=== PATIENT | female | born 1975 | race Caucasian/White ===

== ENCOUNTER 2016-03-01 07:42 | Emergency (ER) | payer OTHER ==
[~2016-03-01] VITALS: Wt 133.5 kg
[~2016-03-01 07:42] MED LIST: BENA20TA48 PO; CIPR500T4 PO; FLUC150T17 PO; HC2.5O30 TOP; HYDR-902 PO; IBUP800T25 PO; MECL-77 PO; ONDA4TAB35 PO; PHEN-538 PO; PHEN95TA29 PO
[2016-03-01] MEDS ORDERED: AMOX1TAB10 PO (08:52)
[2016-03-01] MEDS ORDERED: GUAI120S26 PO (08:54)
[2016-03-01] MEDS ORDERED: IBUP-1542 PO (08:54)
--- NOTE | 2016-03-01 11:29 | ERD ---
ER Documentation Chief Complaint Date/Time DATE: 03/01/16 TIME: 11:26 Chief Complaint COUGH X1 WEEK, NO FEVER, ALSO THROAT PAIN HPI 40-year-old female with a past medical history of hypertension presents to the ED complaining of a fever, dry cough and sore throat that started last week. Also reports that her sinuses are painful. States it is worse when leaning forward. Reports that he has been taking TheraFlu without relief. Denies any sick contacts. Denies any wheezing, shortness of breath, chest pain, abdominal pain, nausea, vomiting, dyspnea on exertion, pleuritic chest pain. ROS All systems reviewed and are negative except as per history of present illness. Medications Home Meds Active Scripts Ibuprofen* (Motrin*) 600 Mg Tab, 600 MG PO Q6, #30 TAB Prov:CINTIA PEREIRA PA-C 03/01/16 Zssdcrlftre-G-Cicotdhaie Hb* (Guaifenesin* DM Syrup) 120 Ml Syrup, 10 ML PO Q4H Y for COUGH, #120 ML Prov:CINTIA PEREIRA PA-C 03/01/16 Amoxicillin/Potassium Clav (Amox-Clav 875-125 mg Tablet) 875-125 mg Tab, 1 TAB PO BID for 7 Days, #14 TAB Prov:CINTIA PEREIRA PA-C 03/01/16 Hydrocodone/Acetaminophen ([place] 10-325 Tablet) 1 Each Tablet, 1 TAB PO Q6H Y for PAIN, #20 TAB Prov:EDINOSBAILEYSTOLOS ARuss DO 11/10/15 Ibuprofen* (Motrin*) 800 Mg Tab, 800 MG PO Q6H Y for PAIN AND OR ELEVATED TEMP, #30 TAB Prov:LEMAYKELOSAPOSTOLOS ARuss DO 11/10/15 Fluconazole* (Diflucan*) 150 Mg Tablet, 150 MG PO ONCE, #1 TAB Prov:YESENIA NEVILLE MD 05/04/15 Phenazopyridine Hcl* (Pyridium*) 200 Mg Tab, 200 MG PO TID Y for DYSURIA, #6 TAB Prov:YESENIA NEVILLE MD 05/04/15 Phenazopyridine Hcl* (AZO*) 95 Mg Tablet, 95 MG PO TID, #10 TAB Prov:ENRIQUE MARQUEZ PA-C 04/24/15 Ciprofloxacin Hcl* (Ciprofloxacin Hcl*) 500 Mg Tablet, 500 MG PO BID for 7 Days , TAB Prov:ENRIQUE MARQUEZ PA-C 04/24/15 Ciprofloxacin Hcl* (Ciprofloxacin Hcl*) 500 Mg Tablet, 500 MG PO BID for 7 Days , TAB Prov:GABRIELLA CHAVARRIA MD 10/26/14 Hydrocortisone* Topical (Hydrocortisone* Topical) 2.5%-28.3 Gm Oint, 1 APPLIC TOP BID, #30 TUB Prov:LINDSAY MARIE PA-C 08/22/14 Benazepril Hcl* (Benazepril Hcl*) 20 Mg Tablet, 20 MG PO DAILY, #30 TAB 3 Refills Prov:LINDSAY MARIE PA-C 08/22/14 Meclizine Hcl* (Meclizine Hcl*) 25 Mg Tablet, 25 MG PO Q8H Y for dizziness, #30 TAB Prov:LINDSAY MARIE PA-C 08/22/14 Ondansetron Hcl* (Zofran* ODT) 4 mg -ODT Tab.disper, 4 MG PO Q6 Y for NAUSEA AND /OR VOMITING, #10 TAB Prov:LINDSAY MARIE PA-C 08/22/14 Reported Medications Benazepril Hcl* (Benazepril Hcl*) 20 Mg Tablet, 20 MG PO DAILY, TAB 08/22/14 Allergies Allergies: Coded Allergies: No Known Allergy (Unverified , 10/26/14) PMhx/Soc History of Surgery: No Anesthesia Reaction: No Hx Neurological Disorder: No Hx Respiratory Disorders: No Hx Cardiac Disorders: No Hx Psychiatric Problems: No Hx Miscellaneous Medical Probl: No Hx Alcohol Use: No Hx Substance Use: No Hx Tobacco Use: No Smoking Status: Never smoker Physical Exam Vitals Vital Signs Date Time Temp Pulse Resp B/P Pulse Ox O2 Delivery O2 Flow Rate FiO2 03/01/16 07:53 97.6 66 18 171/96 98 Physical Exam Const: Xve-ikv-eakxztbun, well-nourished. In no acute distress. Head: Atraumatic, normocephalic. Tenderness to palpation of the bilateral maxillary and frontal sinuses. Eyes: Normal Conjunctiva without injection. No purulent discharge. PERRL. EOMI ENT: Normal external ear. Ear canal without erythema. Tympanic membrane pearly meza without effusion or bulging. Nasal canal clear with normal turbinates. Moist oropharynx without tonsillar exudates. Non-erythematous pharynx. Uvula midline. No drooling. No trismus. Neck: Full range of motion. No meningismus. No cervical lymphadenopathy. Resp: Clear to auscultation bilaterally. No wheezing, rhonchi, rales, or crackles. No accessory muscle use. No retractions. Cardio: Regular rate and rhythm. No murmurs, rubs or gallops. Abd: Soft, non tender, non distended. Normal bowel sounds. No palpable masses. No rebound tenderness. No guarding. Skin: No petechiae or rashes Back: No midline tenderness. No CVA tenderness. Ext: No cyanosis, or edema. Neur: Awake and alert. Psych: Normal Mood and Affect Procedures/MDM This is a 40-year-old female with a past medical history of hypertension presents to the ED complaining of cough since 1 week ago. Patient is afebrile nontoxic appearing. Patient's blood pressure was noted to be 171/96. Patient' s blood pressure was elevated (>120/80) but appears stable without evidence of hypertension emergency or urgency. The patient was counseled about the risks of hypertension and urged to pursue outpatient monitoring and therapy within a week with their primary care physician. Low suspicion for end organ damage. Since patient has been having a cough for more than 1 week, a chest x-ray was ordered to further evaluate patient. Patient's physical exam is consistent with sinusitis. Patient is appropriate for outpatient antibiotics. Patient's physical exam include lungs which were clear to auscultation and a normal pulse oximetry. Bilateral ears pearly may. No tenderness to palpation of tragus or mastoid. Low suspicion for mastoiditis, otitis externa, otitis media. Patient is speaking in full sentences. There is a low suspicion for pneumonia, epiglottitis, croup, sinusitis, peritonsillar abscess, retropharyngeal abscess, meningitis, sepsis, acute abdomen or other emergent conditions. Discharge medications: Augmentin, Ibuprofen, Guaifenesin DM Follow up with primary care physician in 1-2 days. Instructed patient to return to the ED sooner for any worsening symptoms. Patient's questions were answered. Patient understood and agreed with discharge plan. Patient discharged stable. Departure Diagnosis: Primary Impression: Sinusitis Sinusitis location: unspecified location Chronicity: acute Recurrence: not specified as recurrent Qualified Code: J01.90 - Acute sinusitis, recurrence not specified, unspecified location Additional Impression: URI (upper respiratory infection) URI type: unspecified URI Qualified Code: J06.9 - Upper respiratory tract infection, unspecified type Condition: Stable Patient Instructions: Sinusitis, Abx Tx, Uri, Viral, No Abx (Adult) Referrals: COMMUNITY CLINICS YOU HAVE RECEIVED A MEDICAL SCREENING EXAM AND THE RESULTS INDICATE THAT YOU DO NOT HAVE A CONDITION THAT REQUIRES URGENT TREATMENT IN THE EMERGENCY DEPARTMENT. FURTHER EVALUATION AND TREATMENT OF YOUR CONDITION CAN WAIT UNTIL YOU ARE SEEN IN YOUR DOCTORS OFFICE WITHIN THE NEXT 1-2 DAYS. IT IS YOUR RESPONSIBILITY TO MAKE AN APPOINTMENT FOR FOLOW-UP CARE. IF YOU HAVE A PRIMARY DOCTOR --you should call your primary doctor and schedule an appointment IF YOU DO NOT HAVE A PRIMARY DOCTOR YOU CAN CALL OUR PHYSICIAN REFERRAL HOTLINE AT IF YOU CAN NOT AFFORD TO SEE A PHYSICIAN YOU CAN CHOSE FROM THE FOLLOWING [facility] [address] [facility]. [facility] [address] [facility] [address] [facility] [address] [facility] [address] [facility]. [facility]. [address] [facility]. [facility] YOU HAVE RECEIVED A MEDICAL SCREENING EXAM AND THE RESULTS INDICATE THAT YOU DO NOT HAVE A CONDITION THAT REQUIRES URGENT TREATMENT IN THE EMERGENCY DEPARTMENT. FURTHER EVALUATION AND TREATMENT OF YOUR CONDITION CAN WAIT UNTIL YOU ARE SEEN IN YOUR DOCTORS OFFICE WITHIN THE NEXT 1-2 DAYS. IT IS YOUR RESPONSIBILITY TO MAKE AN APPOINTMENT FOR FOLOW-UP CARE. IF YOU HAVE A PRIMARY DOCTOR --you should call your primary doctor and schedule and appointment IF YOU DO NOT HAVE A PRIMARY DOCTOR YOU CAN CALL OUR PHYSICIAN REFERRAL HOTLINE AT . IF YOU CAN NOT AFFORD TO SEE A PHYSICIAN YOU CAN CHOSE FROM THE FOLLOWING [facility] INSTITUTIONS: [facility] [address] [place] [address] [facility] [address] [place] [address] [facility] [address] [place] [address] [facility] URGENT CARE/SPECIALTIES Additional Instructions: FOLLOW UP WITH YOUR PRIMARY CARE PHYSICIAN TOMORROW. Return to this facility if you are not improving as expected. CINTIA PEREIRA PA-C Mar 01, 2016 11:29 CINTIA PEREIRA PA-C Mar 01, 2016 11:29
== END 2016-03-01 09:01 | disposition home or self-care (01) ==
LOC: FTE 07:42
DX: J01.90 Acute sinusitis, unspecified (principal); J06.9 Acute upper respiratory infection, unspecified; I10 Essential (primary) hypertension
CPT/HCPCS: 99283

== ENCOUNTER 2018-07-04 21:45 | Inpatient (IN) | payer OTHER ==
[~2018-07-04] VITALS: Ht 165.1 cm; Wt 142.4 kg
[~2018-07-04 21:45] MED LIST changes: +AMOX1TAB10 PO; +BENA20TA4 PO; -BENA20TA48 PO; +FLUC150T PO; -FLUC150T17 PO; +GUAI120S25 PO; +HYDR-3980 PO; -HYDR-902 PO; +IBUP-1542 PO; -IBUP800T25 PO; +IBUP800T48 PO
[2018-07-05] VITALS (11 sets, daily range): BP systolic 118–138; BP diastolic 60–71; PULSE 62–78; RESP 18–20; Ht 165.1 cm; Wt 142.4 kg
[2018-07-05] MEDS ORDERED: MTF1000T PO (00:39)
[2018-07-05] MEDS ORDERED: ATOR40TA68 PO (00:39)
[2018-07-05] MEDS ORDERED: ASPI-903 PO (00:39)
[2018-07-05] MEDS ORDERED: CHOL100062 PO (00:39)
[2018-07-05] MEDS ORDERED: BENA40TA56 PO (00:39)
[2018-07-05] MEDS ORDERED: GLIP5TAB13 PO (00:39)
[2018-07-05] MEDS ORDERED: ACETAMINOPHEN 325 MG TAB PO PRN (02:00)
[2018-07-05] MEDS ORDERED: ONDANSETRON 4 MG INJ IV PRN (02:00)
[2018-07-05] MEDS ORDERED: DEXTROSE 50% 50 ML SYRINGE IV PRN ×2 (03:00)
[2018-07-05] MEDS ORDERED: GLUCOSE GEL 15 GRAM TUBE BUCCAL PRN (03:00)
[2018-07-05] MEDS ORDERED: GLUCAGON 1 MG INJ IM PRN (03:00)
[2018-07-05] MEDS ORDERED: GLUCOSE GEL 15 GRAM TUBE PO PRN ×2 (03:00)
[2018-07-05] MEDS: ACCU-CHEK XX SCH (03:30)
[2018-07-05] MEDS: PANTOPRAZOLE (EC) 40 MG TAB PO SCH (05:52)
[2018-07-05] MEDS: CHOLECALCIFEROL 1,000 UNIT TAB PO SCH (08:14)
[2018-07-05] MEDS: ASPIRIN 81 MG TAB PO SCH (08:14)
[2018-07-05] MEDS: BENAZEPRIL 40 MG TAB PO SCH (08:14)
[2018-07-05] MEDS: INSULIN ASPART [NOVOLOG] 3 ML PEN SC SCH ×4 (08:41→21:00)
--- NOTE | 2018-07-05 13:57 | QN ---
Documentation Comment seen and examined SON MORRISON MD July 05, 2018 13:57
[2018-07-05] MEDS ORDERED: NITROGLYCERIN (SL) 0.4 MG TAB SL PRN (14:30)
--- NOTE | 2018-07-05 16:12 | HP ---
DATE OF ADMISSION: 07/04/2018 REASON FOR ADMISSION: Transferred from [facility] secondary to chest pain. HISTORY OF PRESENTING ILLNESS: This is a 42-year-old morbidly obese female with a past medical histo ry of diabetes, hypertension, hyperlipidemia, history of cholecystectomy, who was sent in from [facility] secondary to chest pain due to insurance reasons. According to the patient, she suffer s from panic attacks and anxiety attacks sometimes; however yesterday when she was sitting in the off ice all of a sudden, she was having some blurry vision. She started feeling dizzy, nauseous and then she started having left chest pain which was pressure like in her chest. This pain lasted for 1 christianne r. She told her boss that she is leaving and came to the hospital at [facility] for further evaluati on. At [facility], vital signs were within normal limits. The patient had EKG which did no t show any acute ST or T-wave changes. Her troponins were negative. Labs were within normal limits and she was transferred due to insurance reasons. The chest pain was resolved. The patient said james t she has been basically nonambulatory and has gained over pounds in the past last 1 year. PAST MEDICAL HISTORY 1. Diabetes. 2. Hypertension. 3. Hyperlipidemia. 4. Obesity. 5. History of cholecystectomy. ALLERGIES: NONE. MEDICATIONS TAKING AT HOME: 1. Benazepril 20. 2. Atorvastatin 10. 3. Aspirin 81. 4. Ibuprofen. 5. Glipizide 5 b.i.d. SOCIAL HISTORY: Denies any history of smoking, alcohol or any drug use. Currently lives at home. 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 REVIEW OF SYSTEMS: The patient complains of episode of chest pain, some dizziness, feeling hot and e pisode of blurry vision. Suffers from anxiety attacks before. Denies any shortness of breath, any c ough, any abdominal pain, nausea, vomiting, diarrhea. Denies any focal neurological deficit. Denies any hematemesis, any melena, any bright red blood per rectum. PHYSICAL EXAMINATION: VITAL SIGNS: Currently blood pressure is 118/69, afebrile, heart rate 65, respirations 20. GENERAL: The patient is awake, alert, oriented, does not appear to be in acute distress. HEENT: Pupils are equal, round, react to light. NECK: Supple. No JVD. HEART: Regular rate and rhythm. ABDOMEN: Obese, positive bowel sounds. EXTREMITIES: No clubbing, cyanosis or edema. LABORATORY DATA: BMP within normal limit. Troponin is less than 0.012 x2. White count 8.7, hemoglo bin 13.7, platelet count 275. DIAGNOSTIC DATA: Chest x-ray at [facility] was negative. ASSESSMENT AND PLAN: 1. This is a 42-year-old female with chest pain, rule out acute coronary syndrome. The patient has risk factors of diabetes, hypertension, obesity; however, we will also check for D-dimer. Otherwise, this could be all due to anxiety. 2. Morbid obesity. 3. Diabetes. 4. Hypertension. 5. Status post cholecystectomy. PLAN: At this period of time, the patient will be admitted to telemetry. The patient will get aspir in, statin, benazepril. We will also get a D-dimer. We will also get an echo. Cardiology consultat ion has already been requested with Dr. Christensen. Rest of the treatment will depend on the patient's hospitalization course. Dictated By: SON NOVA/TANMAY Conf#: [id number] DID#: [id number]
--- NOTE | 2018-07-05 16:32 | RADRPT ---
Echocardiogram Report Patient Name: RONY MARCOSPatient ID: [id number] : 1975 (42y 11m)Study Date: 07/05/2018 7:06:12 AM Gender: FAccession #: [id number] Tech: Ezequiel Florence [facility] Location: 607 Ref.Physician: SON MORRISON Height(Cm): BSA: Weight(Kg): Quality: AdequateAccount #: Procedures: Echocardiographic Report: Transthoracic echocardiogram with complete 2D, M-Mode, and doppler examination. Indications: Chest Pain. Measurements: 2D/M Mode Doppler Measurement Value Normal Range Measurement Value Normal Range LVIDd 2D 4.3 [ 3.8 - 5.2 ] cm AV Peak Tobias 1.5 [ 100.0 - 170.0 ] cm/sec LVIDs 2D 2.2 [ 2.2 - 3.5 ] cm AV Peak PG 9.0 [ 2.0 - 9.0 ] mmHg LVPWd 2D 1.2 [ 0.6 - 0.9 ] cm LVOT Peak Tobias 0.9 [ 70.0 - 110.0 ] cm/sec IVSd 2D 1.2 [ 0.6 - 0.9 ] cm LVOT Peak PG 4.0 [ 2.0 - 6.0 ] mmHg AoR Diam 2D 2.3 [ 2.3 - 3.1 ] cm MV E Peak Tobias 0.9 [ 60.0 - 130.0 ] cm/sec EDV 2D 85.4 [ 46.0 - 106.0 ] ml MV A Peak Tobias 0.6 [ 100.0 - 120.0 ] cm/sec ESV 2D 15.8 [ 14.0 - 42.0 ] ml MV E/A 1.4 [ 0.8 - 1.5 ] ratio EF 2D 81.5 [ 54.0 - 74.0 ] percent MV Decel Time 197 [ 104 - 258 ] msec LA Dimen 2D 3.3 [ 2.7 - 3.8 ] cm Lat E` Tobias 0.1 [ 10.0 - 15.0 ] cm/sec Lateral E/E` 7.3 [ 1.0 - 2.0 ] ratio MV E/A 1.4 [ 0.8 - 1.5 ] ratio TR Peak Tobias 2.2 [ 100.0 - 280.0 ] cm/sec TR Peak PG 20.0 mmHg RVSP 23.0 [ 10.0 - 36.0 ] mmHg RA Pressure 3.0 mmHg Findings: Left Ventricle: Normal left ventricular systolic function. Normal left ventricular cavity size. Mild concentric left ventricular hypertrophy. Ejection fraction is visually estimated at 60-65 %. Tissue Doppler/Mitral Doppler indices are within normal limits. Right Ventricle: Normal right ventricular size. Normal right ventricular systolic function. Left Atrium: The left atrium is normal in size. Right Atrium: The right atrium is normal in size. Mitral Valve: Normal appearance and function of the mitral valve with trace physiologic regurgitation. Aortic Valve: Normal appearance of the aortic valve. No significant aortic stenosis or insufficiency. Tricuspid Valve: Normal appearance of the tricuspid valve. Estimated peak PA systolic pressure 23 mmHg. There is trace tricuspid regurgitation. Pulmonic Valve: Normal pulmonic valve appearance. Pericardium: Normal pericardium with no significant pericardial effusion. Aorta: Normal aortic root. IVC: Normal size and normal respiratory collapse consistent with normal right atrial pressure. Conclusions: Normal left ventricular systolic function. Normal left ventricular cavity size. Mild concentric left ventricular hypertrophy. Ejection fraction is visually estimated at 60-65 %. Tissue Doppler/Mitral Doppler indices are within normal limits. Normal appearance and function of the mitral valve with trace physiologic regurgitation. Normal appearance of the tricuspid valve. Estimated peak PA systolic pressure 23 mmHg. There is trace tricuspid regurgitation. Electronically Signed By: Merlin Christensen 2018-07-05 16:31:54 PDT
[2018-07-05] MEDS: ATORVASTATIN 40 MG TAB PO SCH (22:12)
[2018-07-06] VITALS (9 sets, daily range): BP systolic 103–118; BP diastolic 57–69; PULSE 60–96; RESP 18–20
[2018-07-06] MEDS: ACCU-CHEK XX SCH (02:00)
[2018-07-06] MEDS: PANTOPRAZOLE (EC) 40 MG TAB PO SCH (06:23)
--- NOTE | 2018-07-06 07:18 | CONS ---
DATE OF ADMISSION: 07/04/2018 DATE OF CONSULTATION: 07/05/2018 REASON FOR CONSULTATION: Chest pain, assess for acute coronary syndrome. REQUESTING PHYSICIAN: Dr. Morrison. HISTORY OF PRESENT ILLNESS: Mr. Howard is a 42-year-old female with history of hypertension, diabete s mellitus, dyslipidemia who states she was at work and began to get diaphoretic. She felt dizzy, fe lt she was going to pass out, and had substernal chest pain, pressure-like, without radiation. The shaun pritchett presented to outside hospital, [place], where upon arrival, her EKG revealed normal sinus r hythm, rate of 75, normal axis and intervals, with inferior T-wave flattening and lateral T-wave flat tening. The patient's blood tests were notable for white count 9.2, hemoglobin 12.8, a platelet coun t of 292, sodium 138, potassium 4.1, creatinine 0.5, BUN of 12, calcium 9.2, AST 29, ALT 30. Troponi n negative. BNP of 12. The patient's chest x-ray revealed no acute cardiopulmonary abnormalities. The patient thereafter transferred to [facility] due to insurance reasons. Since a rrival at [facility], the patient's has had 2 which were negative. Total __ ___. The patient denies ongoing chest pain at this time. PAST MEDICAL HISTORY: As above in HPI. MEDICATIONS CURRENTLY IN HOSPITAL: 1. Lipitor 10 mg 4 times per day. 2. Aspirin 81 mg daily. 3. Benazepril daily. 4. Vitamin D 2000 units daily. 5. Protonix 40 mg daily. 6. Zofran p.r.n. 7. Tylenol p.r.n. ALLERGIES: No known drug allergies. SOCIAL HISTORY: No current tobacco, ETOH or illicit drug use. FAMILY HISTORY: No history of sudden cardiac or early CAD. REVIEW OF SYSTEMS: As above in HPI. CONSTITUTIONAL: No fevers, chills. PULMONARY: No current shortness of breath. CARDIOVASCULAR: No current chest pain. GASTROINTESTINAL: No vomiting. GENITOURINARY: No hematuria. MUSCULOSKELETAL: Degenerative joint disease. PSYCHIATRIC: No psych history. NEUROLOGIC: No documented history of CVA. PHYSICAL EXAMINATION: VITAL SIGNS: Temperature of 98.7, blood pressure 108/69, pulse 65, respiratory rate 20, satting 97%. GENERAL: The patient is alert, awake, in no acute distress. NECK: JVP approximately 8 to 9 cm of water. CHEST: Fair air movement throughout. HEART: Regular rate and rhythm. Normal S1, S2, I/ systolic murmur. Nondisplaced PMI. ABDOMEN: Positive bowel sounds, soft. EXTREMITIES: No edema, 1+ pulses bilateral posterior tibial. LABORATORY DATA: As above in HPI. No further labs for my review at this time. IMAGING STUDIES: As above in HPI. No further imaging studies for my review at this time. ECG: As in HPI. No repeat EKGs for my review at this time. IMPRESSION: 1. Chest pain, assess for acute coronary syndrome. 2. Abnormal cardiogram with nonsignificant to assess for coronary syndrome. 3. Hypertension, reasonable control. 4. Dyslipidemia. Diabetes mellitus. RECOMMENDATIONS: 1. At this time, we will follow patient's 2D echo done for assessment of ejection fraction, wall mot ion abnormalities or other major abnormalities. 2. We will continue the patient's baseline benazepril for control of blood pressure and statin and a djust it according to a fasting lipid panel to be checked. 3. Continue the patient's aspirin for prophylaxis against cardiovascular events. 4. Given the patient's multiple cardiac risk factors and will additionally place the patient in for a cardiac stress test to take place first thing in the morning as not able to do it today as the mauricio ent has already eaten. Thank you for allowing me to take part in the care of this patient. I will continue to follow very c losely with you as further recommendations will be made pressure through his inpatient hospital clini mable course. Dictated By: FITO WATTS/TANMAY Conf#: [id number] DID#: [id number] CC: SON MORRISON;*EndCC*
[2018-07-06] MEDS: ASPIRIN 81 MG TAB PO SCH (08:17)
[2018-07-06] MEDS: BENAZEPRIL 40 MG TAB PO SCH (08:17)
[2018-07-06] MEDS: CHOLECALCIFEROL 1,000 UNIT TAB PO SCH (08:17)
[2018-07-06] MEDS: INSULIN ASPART [NOVOLOG] 3 ML PEN SC SCH ×4 (08:21→21:00)
[2018-07-06] MEDS ORDERED: REGADENOSON 0.4 MG/5 ML SYG ONE (11:19)
--- NOTE | 2018-07-06 11:59 | CONS ---
Assessment/Plan Assessment/Plan Hospital Course (Demo Recall) IMPRESSION: 1. Chest pain, assess for acute coronary syndrome.-neg trop x 3. Nl EF by echo 2. Abnormal cardiogram with nonsignificant to assess for coronary syndrome.-neg trop x 3 3. Hypertension, reasonable control. 4. Dyslipidemia. Diabetes mellitus. Recc: -Tele -Contineu asa/statin -Continue benazepril -Lexiscan stess test today and no ischemia then patient is ok for d/c Consultation Date/Type/Reason Admit Date/Time July 04, 2018 at 23:45 Initial Consult Date 07/05/18 Type of Consult Cardiology Reason for Consultation chest pain Requesting Provider: SON MORRISON MD Date/Time of Note DATE: 07/06/18 TIME: 11:56 Exam/Review of Systems Vital Signs Vitals Vital Signs Date Temp Pulse Resp B/P (MAP) Pulse Ox O2 O2 Flow FiO2 Time Delivery Rate 07/06/18 71 08:00 07/06/18 98.3 20 116/62 97 07:57 (80) 07/05/18 Room Air 01:00 Intake and Output 07/05/18 07/05/18 07/06/18 1515:00 23:00 07:00 IntakeIntake Total 1000 ml BalanceBalance 1000 ml Exam Exam Review of Systems: CONSTITUTIONAL: No fevers, chills. PULMONARY: No sob CARDIOVASCULAR: No chest pain/palpitations GASTROINTESTINAL: No nausea/vomiting. GENITOURINARY: No hematuria/dysuria. MUSCULOSKELETAL: No myagias/arthalgias. PSYCHIATRIC: The patient denies depression. NEUROLOGIC: No weakness Constitutional: alert, oriented Psych: no complaints Head: normocephalic ENMT: mucosa pink and moist Neck: supple, jvd (9 cm water) Respiratory: clear to auscultation Cardiovascular: regular rate and rhythm Gastrointestinal: soft, non-tender Musculoskeletal: muscle tone (normal) Extremities: edema (none) Labs Result Diagram: 07/05/18 0525 07/05/18 0233 Results 24hrs Laboratory Tests Test 07/05/18 14:26 07/05/18 14:38 07/05/18 17:25 07/05/18 22:10 Troponin I < 0.012 D-Dimer 461.39 H D-Dimer Comment Bedside Glucose 130 157 Test 07/06/18 06:04 07/06/18 08:16 Thyroid Stimulating 4.940 H Hormone (TSH) Bedside Glucose 174 Medications Medications Current Medications Acetaminophen (Tylenol Tab) 650 mg Q6H PRN PO MILD PAIN(1-3)OR ELEVATED TEMP; Start 07/05/18 at 02:00 Ondansetron HCl (Zofran Inj) 4 mg Q6H PRN IV NAUSEA AND/OR VOMITING; Start 07/05/18 at 02:00 Pantoprazole (Protonix Tab) 40 mg DAILY@06 PO Last administered on 07/06/18at 06:23; Admin Dose 40 MG; Start 07/05/18 at 06:00 Diagnostic Test (Pha) (Accu-Chek) 1 ea 02 XX ; Start 07/05/18 at 02:00 Insulin Aspart (Novolog Insulin Pen) NOVOLOG *MILD* ALGORITHM WITH MEALS BEDTIME SC Last administered on 07/06/18at 08:21; Admin Dose 1 UNIT; Start 07/05/18 at 08:00 Aspirin (Aspirin) 81 mg DAILY PO Last administered on 07/06/18at 08:17; Admin Dose 81 MG; Start 07/05/18 at 09:00 Atorvastatin Calcium (Lipitor) 10 mg QHS PO Last administered on 07/05/18at 22:12; Admin Dose 10 MG; Start 07/05/18 at 21:00 Benazepril HCl (Lotensin) 40 mg DAILY PO Last administered on 07/06/18at 08:17; Admin Dose 40 MG; Start 07/05/18 at 09:00 Cholecalciferol (Vitamin D) 2,000 unit DAILY PO Last administered on 07/06/18at 08:17; Admin Dose 2,000 UNIT; Start 07/05/18 at 09:00 Miscellaneous Information 1 ea NOTE XX ; Start 07/05/18 at 03:00 Glucose (Glutose) 15 gm Q15M PRN PO DECREASED GLUCOSE; Start 07/05/18 at 03:00 Glucose (Glutose) 22.5 gm Q15M PRN PO DECREASED GLUCOSE; Start 07/05/18 at 03:00 Dextrose (D50w Syringe) 25 ml Q15M PRN IV DECREASED GLUCOSE; Start 07/05/18 at 03:00 Dextrose (D50w Syringe) 50 ml Q15M PRN IV DECREASED GLUCOSE; Start 07/05/18 at 03:00 Glucagon (Glucagen) 1 mg Q15M PRN IM DECREASED GLUCOSE; Start 07/05/18 at 03:00 Glucose (Glutose) 15 gm Q15M PRN BUCCAL DECREASED GLUCOSE; Start 07/05/18 at 03:00 Nitroglycerin (Nitroglycerin (Sl Tab) 0.4 Mg) 1 tab Q5M PRN SL ANGINA; Start 07/05/18 at 14:30 FITO BYRD July 06, 2018 11:59
--- NOTE | 2018-07-06 13:49 | CARRPT ---
DATE OF PROCEDURE: 07/06/2018 TYPE OF PROCEDURE: Lexiscan Cardiolite stress test, electrocardiogram portion. INDICATION: Chest pain, assess for ischemia. BASELINE VITAL SIGNS AND ELECTROCARDIOGRAM: Pulse 76, blood pressure 181/97. Electrocardiogram was normal sinus rhythm, rate 76, normal axis, normal intervals, inferior T-wave flattening and isolated T-wave inversion in lead 3. DESCRIPTION OF PROCEDURE: The patient underwent standard Lexiscan infusion protocol over 10 seconds followed by radiolabeled tracer. The patient's test was stopped at completion of protocol. Maximal achieved blood pressure during test was 198/91. Maximum heart rate during the test was 117. ELECTROCARDIOGRAM FINDINGS: The patient did not develop any new Lexiscan-induced ST or T-wave change s from baseline abnormalities. SYMPTOMS: The patient had complaints of systemic flushed feeling. No chest pain, no shortness of br eath during stress testing. Stomach and flushed feeling resolved during recovery. IMPRESSION: 1. No Lexiscan-induced ST or T-wave changes from baseline abnormalities diagnostic of cardiac ischem ia. 2. No complaints of chest pain or shortness of breath during stress testing. 3. No documented premature ventricular contractions during stress testing. 4. Report of nuclear images to follow in separate dictation. Dictated By: FITO WATTS/TANMAY Conf#: [id number] DID#: [id number] CC: SON MORRISON;*EndCC*
--- NOTE | 2018-07-06 15:19 | QN ---
Documentation Comment seen and examined SON MORRISON MD July 06, 2018 15:19
--- NOTE | 2018-07-06 15:20 | PDOCDIS ---
Discharge Instructions DIAGNOSIS Discharge Diagnosis cp CONDITION [id number] Patient Condition: Iisom8b Fair ACTIVITY: [id number] Activity Restrictions: [id number] Slowly Increase Activity Rest between Activity Avoid heavy lifting FOLLOW UP/APPOINTMENTS Follow-up Plan f/u PCP in 1-2 weeks SON MORRISON MD July 06, 2018 15:20
--- NOTE | 2018-07-06 19:10 | RADRPT ---
Vent Rate: 64 bpm RR Interval: 932 msec ND Interval: 174 msec QRS Duration: 81 msec QT Interval: 393 msec QTC Interval: 407 msec P-R-T [place]: 38 - 21 - 19 degrees Sinus rhythm...normal P axis, V-rate 50- 99 Electronically Signed By: Crow Blankenship
[2018-07-06] MEDS: ATORVASTATIN 40 MG TAB PO SCH (21:50)
[2018-07-07] VITALS: BP 123/70; PULSE 72; PULSE 75; RESP 18
[2018-07-07] MEDS: ACCU-CHEK XX SCH (02:00)
--- NOTE | 2018-07-07 03:27 | DS ---
DATE OF ADMISSION: 07/04/2018 DATE OF DISCHARGE: 07/06/2018 HISTORY OF PRESENTING ILLNESS AND HOSPITAL COURSE: This is a 42-year-old morbidly obese female with past medical history of diabetes, hypertension, hyperlipidemia, history of cholecystectomy, anxiety, sent from [place] secondary to chest pain due to insurance reasons. The patient had troponins james t were negative. Her labs were within normal limits. The patient had serial troponins that were neg ative. The patient also had a chest x-ray there at [facility] which was negative. The mauricio ent had a D-dimer that was sent which was borderline elevated. She had a lower extremity ultrasound which was negative for DVT. The patient was seen by cardiology consultation with Dr. Christensen. She h ad an echocardiogram that showed EF of 60% to 65%. She had a nuclear stress test on 07/06/2018 that showed no evidence of perfusion defects, no wall motion abnormalities. The patient denied any more c hest pain. Vital signs were stable and currently stable to be discharged home. The chest pain was l ikely thought to be secondary to anxiety. FINAL DISCHARGE DIAGNOSES: 1. Chest pain, likely secondary to anxiety. 2. Diabetes. 3. Hypertension. 4. Hyperlipidemia. 5. Anxiety. DISCHARGE CONDITION: Stable. DISCHARGE DIET: A 2-gram sodium, carb controlled diet. DISCHARGE MEDICATIONS: Continue with home medications: 1. Aspirin 81. 2. Atorvastatin 10. 3. Benazepril 40. 4. Cholecalciferol. 5. 5 b.i.d. 6. Guaifenesin. 7. Meclizine p.r.n. 8. Metformin 500 b.i.d. 9. Zofran p.r.n. DISCHARGE INSTRUCTIONS: The patient was instructed to follow up with PCP in 1 to 2 weeks. Dictated By: SON NOVA/TANMAY Conf#: [id number] DID#: [id number]
[2018-07-07 04:00] VITALS: BP 107/59; PULSE 66; PULSE 74; RESP 18
[2018-07-07] MEDS: PANTOPRAZOLE (EC) 40 MG TAB PO SCH (06:14)
[2018-07-07 07:49] VITALS: BP 138/64; PULSE 84; RESP 20
[2018-07-07] MEDS: ASPIRIN 81 MG TAB PO SCH (08:13)
[2018-07-07] MEDS: CHOLECALCIFEROL 1,000 UNIT TAB PO SCH (08:13)
[2018-07-07] MEDS: BENAZEPRIL 40 MG TAB PO SCH (08:13)
[2018-07-07] MEDS: INSULIN ASPART [NOVOLOG] 3 ML PEN SC SCH (08:19)
== END 2018-07-07 09:58 | disposition home or self-care (01) | DRG 880 ==
LOC: 6WM 23:45
PROVIDERS: ADMIT Internal Medicine; ATTEND Internal Medicine
DX: F41.9 Anxiety disorder, unspecified (principal); Z68.43 Body mass index [BMI] 50.0-59.9, adult; E66.01 Morbid (severe) obesity due to excess calories; E11.9 Type 2 diabetes mellitus without complications; I10 Essential (primary) hypertension; E78.5 Hyperlipidemia, unspecified; R07.9 Chest pain, unspecified; Z90.49 Acquired absence of other specified parts of digestive tract; Z79.4 Long term (current) use of insulin; Z79.82 Long term (current) use of aspirin
CPT/HCPCS: 78452; 80048; 82962; 84443; 84484; 85025; 85378; 93005; 93017; 93306; 93970; A9500; A9505; J1815; J2785